=== PATIENT | female | born 1995 | race Caucasian/White ===

== ENCOUNTER 2019-02-02 10:10 | Emergency (ER) | payer OTHER ==
[~2019-02-02] VITALS: Ht 175.3 cm; Wt 111.6 kg
[2019-02-02 10:20] VITALS: Ht 175.3 cm; Wt 111.6 kg
[2019-02-02 12:31] VITALS: BP 127/70
== END 2019-02-02 12:31 | disposition home or self-care (01) ==
LOC: ED 10:10
DX: J02.9 Acute pharyngitis, unspecified (principal); M79.10 Myalgia, unspecified site
CPT/HCPCS: Q0092